=== PATIENT | female | born 1965 | race Caucasian/White ===

== ENCOUNTER 2017-10-17 10:06 | Emergency (ER) | payer MEDICAID ==
[~2017-10-17] VITALS: Ht 177.8 cm; Wt 66.0 kg
[2017-10-17 10:09] VITALS: BP 148/86
[2017-10-17] MEDS ORDERED: IBUPROFEN 200 MG TABLET ONE (10:37)
[2017-10-17 11:00] LABS: HEMATOCRIT 44.4 % (34.6-47.8); HEMOGLOBIN 15.4 g/dL (11.7-16.4); WHITE BLOOD COUNT 3.8 x10^3/uL (3.4-10)
[2017-10-17] MEDS ORDERED: IBUPROFEN 200 MG TABLET PO ONE (11:00)
[2017-10-17 11:09] LABS: BLOOD UREA NITROGEN 8 mg/dL (7-18)
[2017-10-17 11:13] LABS: IS PT STATUS REG ER OR PRE ER? YES
== END 2017-10-17 11:19 | disposition left against medical advice (07) ==
LOC: ED 10:41
DX: R07.2 Precordial pain (principal); J20.9 Acute bronchitis, unspecified; F17.200 Nicotine dependence, unspecified, uncomplicated
CPT/HCPCS: 36415; 71010; 80048; 82040; 84484; 85025; 93005; 99285